=== PATIENT | male | born 1955 | race Caucasian/White ===

== ENCOUNTER 2017-01-31 09:48 | Outpatient (CLI) | payer MEDICARE ==
[2017-01-31 13:05] LABS: Hematocrit 44.5 % (42.0-52.0); Mean Platelet Volume 7.4 fL (7.4-10.4); Red Blood Cell (RBC) Count 4.51 mill/uL (4.70-6.10); White Blood Cell (WBC) Count 4.9 thou/uL (4.8-10.8)
[2017-01-31 13:31] LABS: Anion Gap 12 mmol/L (10-20); BUN (Urea Nitrogen) 18 mg/dL (8.4-25.7); Calc. Creatinine Clearance 0 mL/min (70-130); Calcium 8.7 mg/dL (7.8-10.44); Carbon Dioxide 26 mmol/L (22-29); Chloride 108 mmol/L (98-107); Estimated GFR-MDRD Greater than 90
[2017-01-31 13:58] LABS: Prothrombin Time 12.5 SEC (12.0-14.7)
--- NOTE | 2017-01-31 15:19 | RAD ---
TWO VIEWS CHEST: Date: 01-31-17 Comparison: None. History: Pre-operative patient. FINDINGS: There is an old left sided 5th and 7th rib fracture. There is mild linear density in the medial left lung base suggesting scar or volume loss. No pneumothorax, pleural fluid, focal consolidation or al veolar edema. IMPRESSION: No acute findings. POS: [facility]
--- NOTE | 2017-01-31 22:09 | EKG ---
Test Reason : Blood Pressure : / mmHG Vent. Rate : 058 BPM Atrial Rate : 058 BPM P-R Int : 144 ms QRS Dur : 086 ms QT Int : 398 ms P-R-T Axes : 000 037 070 degrees QTc Int : 390 ms Sinus bradycardia T wave abnormality, consider anterolateral ischemia Abnormal ECG No previous ECGs available Confirmed by GIOVANNI SALOMON, DR. Batres ([id number]) on 01/31/2017 10:09:18 PM Referred By: NIHARIKA Confirmed By:DR. Gisel DAVILA MD
== END 2017-01-31 09:49 | disposition home or self-care (01) ==
LOC: LABBT 09:48
PROVIDERS: ATTEND Orthopaedic Surgery Hand Surgery
DX: Z01.818 Encounter for other preprocedural examination (principal); M19.042 Primary osteoarthritis, left hand; M65.332 Trigger finger, left middle finger
CPT/HCPCS: 71020; 80048; 85027; 85610; 85652; 93005; 93010

== ENCOUNTER 2017-02-01 06:13 | Day surgery (SDC) | payer MEDICARE ==
[2017-01-31 10:10] VITALS: BMI 27.8
[2017-02-01] MEDS ORDERED: Vancomycin HCl 1.5 GM, Admixture Fee 1 EACH in Sodium Chloride 0.9% 250 ML 300 ML IVPB SCH (06:45)
[2017-02-01] MEDS ORDERED: Bacitracin Zinc Ointment 30 gm TUBE ONE (06:54)
[2017-02-01] MEDS ORDERED: Bupivacaine PF 0.5% 30 ML VIAL ONE (06:54)
[2017-02-01] MEDS ORDERED: Sodium Chloride 0.9% 10 ML ONE (06:54)
[2017-02-01] MEDS ORDERED: Fentanyl 100 MCG/2 ML VIAL ONE (06:57)
[2017-02-01] MEDS ORDERED: Propofol 200 MG/20 ML VIAL ONE (07:35)
[2017-02-01] MEDS ORDERED: PHENYLEPHRINE-NS 100 MCG/ML 10 ML SYRINGE ONE (07:35)
[2017-02-01] MEDS ORDERED: Ondansetron HCl/PF 4 MG/2 ML Vial ONE (07:35)
[2017-02-01] MEDS ORDERED: Lidocaine 1% PF 5 ML VIAL ONE (07:35)
[2017-02-01] MEDS ORDERED: ePHEDrine/0.9% NaCl/PF SYRINGE 50 mg/10 ml ONE (07:35)
[2017-02-01] MEDS ORDERED: Ketorolac Tromethamine 30 MG/ML VIAL ONE (09:58)
--- NOTE | 2017-02-01 12:56 | OP ---
DATE OF PROCEDURE: 02/01/2017. PREOPERATIVE DIAGNOSIS: Right long finger trigger digit and right long finger severe osteoarthritis . FINDINGS: 1. Severe osteoarthritis all portions of the long finger metacarpophalangeal joint with marked syno vitis. 2. Very thick A1 chrissie long finger flexor tendon at the palm. PROCEDURE PERFORMED: 1. Trigger finger release, right long finger. 2. Synovitis right long finger metacarpophalangeal joint. 3. Total joint arthroplasty using a #4 implant, metacarpophalangeal joint with no complications, ri ght Nia Wyarno silicone. TOURNIQUET TIME: 59 minutes. ESTIMATED BLOOD LOSS: Estimated blood loss 20 mL. INJECTABLE: Injectable total of 20 mL 0.5% Marcaine at both incisions divided approximately 15 to t he joint arthroplasty site and 5 to the trigger finger. The patient's pain osteoarthritis triggering despite injection and therapy. SURGEON: Silvestre Oliveira M.D. DESCRIPTION OF PROCEDURE: After successful general LMA technique, the limb was prepped and draped. The patient had a timeout done appropriately, limb was exsanguinated, tourniquet was inflated to 25 0 mmHg pressure, incisions lateral dorsal MP joint over the palm A1 chrissie and these underwent injec tion with 5 mL of 0.5% Marcaine without epinephrine prior to incision. With the tourniquet inflated to 250 mmHg pressure we then made a curvilinear incision over the A1 chrissie, carried through skin a nd subcutaneous tissue, identified the neurovascular bundles were then released the trigger finger i n the midline where it was very thick at the A1 chrissie. A small amount of synechiae was formed betw een the skin and the tendon. This was removed as well. Patient had his wound closed without cortisone because the patient reported history of cortisone wit h interrupted 4-0 nylon in a simple pattern. We turned the hand to the dorsal area and then made a curvilinear incision where it did not cross th e apex of the MP joint, but was slightly radialized through skin, subcutaneous tissue, because it wa s so thin, we preserved the retinaculum and then made a release of the retinaculum 3 mm from this ed ge on the radial long finger extensor mechanism. Then slowly dissect the extensor mechanism ulnarly until we could see the joint capsule, released the capsule and moved all the very thick synovium an d then identified collaterals. We made a box cut on the metacarpal head and a pseudo box cut on the base of the proximal phalanx, r emoving all osteophytes visualized. We then began a series of joint identifying and intramedullary canal maneuvers with a standard right Nia Wyarno. First stage joint canal finder, and then we ream ed out to effectively 4 which was appropriate size because it covered the cut space as well as gave stability. The collaterals have been identified and tagged with a Bunnel suture using 4-0 Prolene. we sized with a size 4 trial implant and had excellent stability and we corrected the crossov er of the long finger on the ring finger. After drilling a hole in the radial and ulnar aspect of metacarpal head for reattachment of collater als, we put a suture through this, placed a #4 prosthesis in appropriate position and had excellent fill with no instability and did not sublux at 110 degrees of flexion. Once this was done, we then tied the collateral ligaments with the long finger held in neutral and this had excellent tension. We then released the tourniquet. We obtained hemostasis. First we repaired the joint using interru pted 4-0 Monocryl then the retinaculum with interrupted 4-0 Prolene in a [id number] pattern and then the epidermis and dermis in 1 layer with 4-0 nylon interrupted mattress pattern. We injected another 10 mL 0.5% Marcaine. This wound without complication, placed a bulky dressing with the MP j oint in neutral. We took x-ray to show excellent prosthesis position and stability and the patient left the operating room without evidence of anesthetic or operative complications.
--- NOTE | 2017-02-01 17:16 | RAD ---
INTRAOPERATIVE IMAGING OF RIGHT HAND 02/01/17 COMPARISON: None. HISTORY: Right hand surgery. FINDINGS: There is irregularity involving the head of the third metacarpal. Questionable postoperative gas is s een in the region of the third metacarpal phalangeal joint. Scattered degenerative changes are prese nt. IMPRESSION: Intraoperative imaging as above. Followup three view examination of the right hand is advised if clin ically indicated as osseous structures are not well assessed on portable intraoperative imaging. POS: [facility]
== END 2017-02-01 11:05 | disposition home or self-care (01) ==
LOC: SDC 06:13
PROVIDERS: ATTEND Orthopaedic Surgery Hand Surgery
PROC: 0LN70ZZ Release Right Hand Tendon, Open Approach (ICD-10-PCS; principal; 2017-02-01)
DX: M65.331 Trigger finger, right middle finger (principal); M19.041 Primary osteoarthritis, right hand; Z88.5 Allergy status to narcotic agent; Z88.8 Allergy status to other drugs, medicaments and biological substances; Z98.890 Other specified postprocedural states
CPT/HCPCS: 26055; 73120; 76001; 88305; 88311; 96374; C1776; A4216; J1885; J2001; J2405; J2704; J3010; J3370; J3490; J7050; S0020

== ENCOUNTER 2018-06-27 13:37 | Outpatient (CLI) | payer MEDICARE ==
--- NOTE | 2018-06-27 14:43 | ULT ---
CAROTID DOPPLER: Technique: Ultrasound doppler study is performed of the extracranial carotid arteries. Color doppler with spectral analysis performed. Velocity recordings were obtained. Indications: Right MCA occlusion. FINDINGS: Mild echogenic plaque is seen in the bulbs and proximal ICAs bilaterally. Velocity records are normal bilaterally. Right ICA velocity is recorded at 53 cm/sec systolic. Highes t left ICA velocity recorded at 80 cm/sec systolic. Vertebral arteries show antegrade flow. IMPRESSION: 1. Mild echogenic plaque in both proximal ICAs. 2. No evidence of significant stenosis identified in either internal carotid artery. POS: [facility]
--- NOTE | 2018-06-27 16:08 | MRI ---
MRI Brain W WO Con: 06/27/2018 12:00 AM CLINICAL HISTORY: History of carotid stenosis, and multiple sclerosis. COMPARISON: 04/26/2016 FINDINGS: Extra axial spaces: Mild prominence of CSF due to parenchymal volume loss. Hemorrhage: None. Ventricular system: Normal in size and morphology for the patient's age. Basal cisterns: Normal. Cerebral parenchyma: Multifocal signal abnormality of the bilateral cerebral white matter is grossly stable. Midline shift: None. Cerebellum: Normal. Brainstem: Normal. Paranasal sinuses:Clear No pathologic intra-axial enhancement. IMPRESSION:No acute intracranial abnormality. Stable multifocal bilateral cerebral white matter signal abnormality, in keeping with history of mult iple sclerosis. No enhancement to confirm active demyelination.
[2018-06-28 08:38] LABS: Estimated GFR-MDRD - POC Greater than 90
== END 2018-06-27 13:38 | disposition home or self-care (01) ==
LOC: SCSMRI 13:37
PROVIDERS: ATTEND Psychiatry & Neurology Neurology
DX: I66.01 Occlusion and stenosis of right middle cerebral artery (principal); R93.0 Abnormal findings on diagnostic imaging of skull and head, not elsewhere classified; I65.23 Occlusion and stenosis of bilateral carotid arteries
CPT/HCPCS: 70553; 82565; 93880

== ENCOUNTER 2021-05-08 08:06 | Day surgery (SDC) | payer MEDICARE ==
[2021-05-07 10:26] VITALS: BMI 27.8
[2021-05-08 11:09] LABS: Fluid, Triglycerides 19 mg/dL (Not Available); Pleural Fluid, Amylase Less than 30 U/L (Not Available); Pleural Fluid, Glucose 100 mg/dL; Pleural Fluid, LDH 167 U/L (Not Available); Pleural Fluid, Protein 3.3 g/dL
[2021-05-08 11:44] LABS: RBC Count-Automated (BF) 11294 /cu.mm; WBC/Nucleated-Auto (BF) 756 /cu.mm
[2021-05-08 11:52] LABS: BF Color Red; Body Fluid Source Thoracentesis Fluid; Clarity Hazy (Clear); Tube # EDTA
[2021-05-08 11:57] LABS: BF Segmented Neutrophils 2 %; Cell Count Non Hematic 51 %; Lymphocytes 47 %
== END 2021-05-08 11:25 | disposition home or self-care (01) ==
LOC: SDC 08:06
PROVIDERS: ATTEND Internal Medicine Pulmonary Disease
PROC: 0W993ZZ Drainage of Right Pleural Cavity, Percutaneous Approach (ICD-10-PCS; principal; 2021-05-08)
PROC: BB4BZZZ Ultrasonography of Pleura (ICD-10-PCS; 2021-05-08)
DX: J90 Pleural effusion, not elsewhere classified (principal); M10.9 Gout, unspecified; G43.909 Migraine, unspecified, not intractable, without status migrainosus; F17.210 Nicotine dependence, cigarettes, uncomplicated; E66.9 Obesity, unspecified; Z68.27 Body mass index [BMI] 27.0-27.9, adult; Z79.899 Other long term (current) drug therapy; Z88.5 Allergy status to narcotic agent; Z86.73 Personal history of transient ischemic attack (TIA), and cerebral infarction without residual deficits
CPT/HCPCS: 71250; 82150; 82945; 83615; 83986; 84157; 84478; 85060; 87070; 87116; 87205; 87206; 89051; J1642

== ENCOUNTER 2021-10-30 08:56 | Outpatient (CLI) | payer MEDICARE ==
[2021-10-30] MEDS ORDERED: Iopamidol 370 76% 100 ML VIAL ONE (09:24)
== END 2021-10-30 08:57 | disposition home or self-care (01) ==
LOC: CT 08:56
PROVIDERS: ATTEND Internal Medicine Critical Care Medicine
DX: J94.8 Other specified pleural conditions (principal); J98.11 Atelectasis; J90 Pleural effusion, not elsewhere classified
CPT/HCPCS: 71260; 82565; Q9967